=== PATIENT | female | born 1995 | race Caucasian/White ===

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

== ENCOUNTER 2017-10-09 18:39 | Emergency (ER) | payer BC ==
[2017-10-09 18:52] VITALS: BP 125/75
--- NOTE | 2017-10-09 19:49 | ED ---
GI/ HPI - HPI Summary HPI Summary: 22 yo WF c/o bloody urine x 3 hrs, denies f/c/dysuria, suprapubic pressure/ flank pain - History of Current Complaint Chief Complaint: UCGU Time Seen by Provider: 10/09/17 18:47 Stated Complaint: BLOOD IN URINE Hx Obtained From: Patient Hx Last Menstrual Period: mirena Timing: Constant, Lasting Hours Severity: Moderate Current Severity: Moderate Pain Intensity: 0 Associated Signs and Symptoms: Positive: Negative - Allergy/Home Medications Allergies/Adverse Reactions: Allergies Allergy/AdvReac Type Severity Reaction Status Date / Time No Known Allergies Allergy Verified 10/09/17 18:52 PMH/Surg Hx/FS Hx/Imm Hx Previously Healthy: Yes Endocrine/Hematology History: Denies: Hx Diabetes, Hx Thyroid Disease Cardiovascular History: Denies: Hx Hypertension Respiratory History: Denies: Hx Asthma, Hx Chronic Obstructive Pulmonary Disease (COPD) GI History: Denies: Hx Ulcer Infectious Disease History: No Infectious Disease History: Denies: Hx Hepatitis, Hx Human Immunodeficiency Virus (HIV), Traveled Outside the in Last 30 Days - Family History Known Family History: Positive: Diabetes - Social History Alcohol Use: None Substance Use Type: Reports: None Smoking Status (MU): Never Smoked Tobacco Review of Systems Constitutional: Negative Eyes: Negative ENT: Negative Cardiovascular: Negative Respiratory: Negative Gastrointestinal: Negative Positive: see HPI, hematuria Musculoskeletal: Negative Skin: Negative Neurological: Negative Psychological: Normal All Other Systems Reviewed And Are Negative: Yes Physical Exam Triage Information Reviewed: Yes Vital Signs On Initial Exam: Initial Vitals Temp Pulse Resp BP Pulse Ox 37.3 C 88 19 125/75 98 10/09/17 18:47 10/09/17 18:47 10/09/17 18:47 10/09/17 18:47 10/09/17 18:47 Vital Signs Reviewed: Yes Appearance: Positive: Well-Appearing Skin: Positive: Warm Head/Face: Positive: Normal Head/Face Inspection Eyes: Positive: Normal ENT: Positive: Normal ENT inspection Neck: Positive: Supple Cardiovascular: Positive: Normal, S1, S2 Abdomen Description: Positive: Nontender, Soft. Negative: CVA Tenderness (R), CVA Tenderness (L), Distended, Guarding Musculoskeletal: Positive: Normal Neurological: Positive: Normal Diagnostics - Vital Signs Vital Signs Temp Pulse Resp BP Pulse Ox 10/09/17 18:47 37.3 C 88 19 125/75 98 - Laboratory Lab Results: Lab Results 10/09/17 10/09/17 Range/Units 19:00 19:17 POC Urine Color Red A POC Urine Clarity Clear POC Urine pH 6.0 (5-9) POC Ur Specif [place] <= 1.005 L (1.010-1.030) POC Urine Protein 2+ A (Negative) POC Ur Glucose (UA) Negative (Negative) POC Urine Ketones Negative (Negative) POC Urine Blood 3+ A (Negative) POC Urine Nitrite Negative (Negative) POC Urine Bilirubin Negative (Negative) POC Urine Urobilinogen 0.2 (Negative) POC U Leukocyte Esteras Trace A (Negative) POC Ur Test Negative (Negative) Lab Statement: Any lab studies that have been ordered have been reviewed, and results considered in the medical decision making process. GIGU Course/Dx - Course Assessment/Plan: painless hematuria with LE in UA, recommended to WAIT to take the macrobid and see if the hematuria resolves on its own, if it does not resolve in 2-3 days, take the abx for occult UTI - Diagnoses Provider Diagnoses: Hematuria, unspecified Discharge - Sign-Out/Discharge Documenting (check all that apply): Discharge/Admit/Transfer - Discharge Plan Condition: Stable Disposition: HOME Prescriptions: Nitrofurantoin Monohyd/M-Cryst [Macrobid 100 mg Capsule] 100 mg PO BID 5 Days # 10 cap Patient Education Materials: Hematuria (ED) Referrals: No Primary Care Phys,NOPCP [Primary Care Provider] - - Billing Disposition and Condition Condition: STABLE Disposition: HOME
== END 2017-10-09 20:01 | disposition home or self-care (01) ==
LOC: UCEAST 18:39
DX: R31.9 Hematuria, unspecified (principal); Z32.02 Encounter for pregnancy test, result negative
CPT/HCPCS: 81003; 84702; 87086; 99211; G0463

== ENCOUNTER 2018-04-18 16:00 | Emergency (ER) | payer BC ==
[2018-04-18 17:06] VITALS: BP 109/71
--- NOTE | 2018-04-18 17:21 | UC ---
Complaint Female HPI - HPI Summary HPI Summary: 22 year old female presents with 3 day history of suprapubic pain, dysuria, frequency, and urgency. Today developed some bilateral lower back pain. Denies fever, chills, flank pain, nausea, vomiting, hematuria, or vaginal discharge. - History Of Current Complaint Chief Complaint: UCGU Stated Complaint: URINARY Time Seen by Provider: 04/18/18 17:10 Hx Obtained From: Patient Hx Last Menstrual Period: IUD Onset/Duration: Gradual Onset, Lasting Days - 3 Severity Currently: Moderate Pain Intensity: 7 Character: Burning Aggravating Factor(s): Urination Alleviating Factor(s): Nothing Associated Signs And Symptoms: Positive: Back Pain. Negative: Fever, Vaginal Bleeding/Discharge, Nausea, Vomiting(# Of Episodes =), Genital Swelling, Genital Blisters - Allergies/Home Medications Allergies/Adverse Reactions: Allergies Allergy/AdvReac Type Severity Reaction Status Date / Time No Known Allergies Allergy Verified 10/09/17 18:52 Home Medications: Home Medications Iud 04/18/18 [History] Pumpkin Seed Extract/Soy Germ [Azo Bladder Control Capsule] 1 each PO DAILY 04/25 [History Confirmed 04/18/18] PMH/Surg Hx/FS Hx/Imm Hx Previously Healthy: Yes - Denies significant PMH - Surgical History Surgical History: None - Family History Known Family History: Positive: Diabetes - Social History Occupation: Employed Part-time Lives: With Family Alcohol Use: None Substance Use Type: None Smoking Status (MU): Never Smoked Tobacco Review of Systems All Other Systems Reviewed And Are Negative: Yes Constitutional: Positive: Negative Gastrointestinal: Positive: Negative Genitourinary: Positive: Dysuria, Frequency, Urgency Is Patient Immunocompromised?: No Physical Exam Triage Information Reviewed: Yes Appearance: Well-Appearing, No Pain Distress, Well-Nourished Vital Signs: Initial Vital Signs Temp 98.1 F 04/18/18 17:01 Pulse 76 04/18/18 17:01 Resp 17 04/18/18 17:01 BP 109/71 04/18/18 17:01 Pulse Ox 100 04/18/18 17:01 Respiratory: Positive: Lungs clear, Normal breath sounds, No respiratory distress Cardiovascular: Positive: RRR, No Murmur Abdomen Description: Positive: No Organomegaly, Soft, Other: - Mild suprapubic tenderness. Negative: CVA Tenderness (R), CVA Tenderness (L), Distended, Guarding Neurological: Positive: Alert Skin Exam: Normal Diagnostics - Laboratory Diagnostic Studies Completed/Ordered: Urine culture pending Complaint Female Dx - Course Course Of Treatment: 22 year old female with 3 day history of dysuria, frequncy , urgency, and suprapubic discomfort. Afebrile. Unable to perform POC UA as patient had taken Azo. Urine culture sent. Based on symptoms with treat empirically for UTI with 3 day course of Bactrim DS pending culture results. She is to follow up with PCP if symptoms persist. Warning symptoms reviewed. Verbalizes understanding and agrees with POC. - Differential Dx/Diagnosis Provider Diagnoses: UTI Discharge - Sign-Out/Discharge Documenting (check all that apply): Patient Departure All imaging exams completed and their final reports reviewed: No Studies - Discharge Plan Condition: Stable Disposition: HOME Prescriptions: Sulfamethox/Trimethoprim DS* [Bactrim DS 800/160 TAB*] 1 tab PO BID #5 tab Patient Education Materials: Urinary Tract Infection in Women (ED) Referrals: No Primary Care Phys,NOPCP [Primary Care Provider] - Additional Instructions: We were unable to test your urine for urinary tract infection in the clinic because you took Azo which can effect the results of the test. We will send the urine for culture to see if any bacteria grow out and make sure that the antibiotic you were prescribed is appropriate. It take 48-72 hours for these results. Take Bactrim DS 1 tab twice a day for 3 days. We gave you the first dose of the antibiotic in the clinic. You may continue to take the Azo as directed for next 2 days. You should not need this after 2 days as your symptoms should be improving on the antibiotics by this time. To help prevent urinary tract infections: Drink plenty of fluids. Be sure to wipe from front to back. Urinate immediately after any sexual intercourse. Follow up with your primary care provider in 5 days if symptoms persist. Seek immediate medical attention in the emergency room if you have fever greater than 100.5 F, have severe abdominal pain, persistent vomiting, or any worsening of symptoms. - Billing Disposition and Condition Condition: STABLE Disposition: Home
[2018-04-18] MEDS ORDERED: Sulfamethox/Trimethoprim DS 800/160* TAB PO ONE (17:24)
--- NOTE | 2018-04-21 07:01 | UC ---
- Progress Note Progress Note: urine + proteus on bactrim no change pending final j 04/21/18 Discharge - Sign-Out/Discharge Documenting (check all that apply): Post-Discharge Follow Up All imaging exams completed and their final reports reviewed: No Studies - Discharge Plan Condition: Stable Disposition: HOME Prescriptions: Sulfamethox/Trimethoprim DS* [Bactrim DS 800/160 TAB*] 1 tab PO BID #5 tab Patient Education Materials: Urinary Tract Infection in Women (ED) Referrals: No Primary Care Phys,NOPCP [Primary Care Provider] - Additional Instructions: We were unable to test your urine for urinary tract infection in the clinic because you took Azo which can effect the results of the test. We will send the urine for culture to see if any bacteria grow out and make sure that the antibiotic you were prescribed is appropriate. It take 48-72 hours for these results. Take Bactrim DS 1 tab twice a day for 3 days. We gave you the first dose of the antibiotic in the clinic. You may continue to take the Azo as directed for next 2 days. You should not need this after 2 days as your symptoms should be improving on the antibiotics by this time. To help prevent urinary tract infections: Drink plenty of fluids. Be sure to wipe from front to back. Urinate immediately after any sexual intercourse. Follow up with your primary care provider in 5 days if symptoms persist. Seek immediate medical attention in the emergency room if you have fever greater than 100.5 F, have severe abdominal pain, persistent vomiting, or any worsening of symptoms. - Billing Disposition and Condition Condition: STABLE Disposition: Home
== END 2018-04-18 17:33 | disposition home or self-care (01) ==
LOC: UCCORT 16:00
DX: N39.0 Urinary tract infection, site not specified (principal); B96.4 Proteus (mirabilis) (morganii) as the cause of diseases classified elsewhere; Z16.29 Resistance to other single specified antibiotic
CPT/HCPCS: 87077; 87086; 87186; 99212; A9270-GY; G0463

== ENCOUNTER 2022-06-04 17:54 | Inpatient (IN) ==
[2022-06-04] MEDS ORDERED: Dinoprostone 10 MG VAG.SUPP VAGINAL ONE (18:09)
[2022-06-04] MEDS ORDERED: Buffered Lidocaine 1% SYRIN 1 ml ONE (18:49)
[2022-06-04 19:18] LABS: ABS Basophils 0.1 10^3/ul (0-0.2); ABS Eosinophils 0.1 10^3/ul (0-0.6); ABS Lymphocytes 2.2 10^3/ul (1.0-4.8); ABS Monocytes 0.9 10^3/ul (0-0.8); ABS Neutrophils 10.6 10^3/ul (1.5-7.7); Eosinophil % 0.7 %; Hematocrit 33 % (35-47); Hemoglobin 11.2 g/dL (12.0-16.0); Lymphocyte % 15.6 %; Mean Corpuscular HGB Conc 34 g/dL (31-36); Mean Corpuscular Hemoglobin 26 pg (27-31); Mean Corpuscular Volume 78 fL (80-97); Mean Platelet Volume 9.3 fL (7.4-10.4); Platelet Count 254 10^3/uL (150-450); Red Blood Count 4.27 10^6 /uL (3.70-4.87); Red Cell Distribution Width 13 % (10-15); White Blood Count 13.8 10^3/uL (3.5-10.8)
[2022-06-04 19:38] LABS: Urine Benzodiazepine Screen None Detected (None Detect); Urine Cannabinoids Screen None Detected (None Detect); Urine Opiates Screen None Detected (None Detect)
[2022-06-04 19:58] LABS: Albumin 3.2 g/dL (3.2-5.2); Calcium 8.2 mg/dL (8.6-10.3); Globulin 3.2 g/dL (2-4); Total Bilirubin 0.5 mg/dL (0.2-1.0); Total Protein 6.4 g/dL (6.4-8.9); Uric Acid 5.1 mg/dL (2.3-6.6)
[2022-06-04] MEDS: OSELTAMIVIR 75 MG PO SCH (22:31)
[2022-06-05] MEDS ORDERED: Morphine 10 MG/ML VIAL (1 ml) IM ONE (00:33)
[2022-06-05] MEDS ORDERED: Promethazine INJ(RESTRICTED) 25 MG/ML 1 ml VIAL IM ONE (00:34)
[2022-06-05] MEDS: OSELTAMIVIR 75 MG PO SCH (08:03)
[2022-06-05] MEDS ORDERED: Buffered Lidocaine 1% SYRIN 1 ml ONE (09:31)
[2022-06-05] MEDS ORDERED: Lidocaine/Epinephrin 1.5%/200 5 ML AMP INJ ONE (10:47)
[2022-06-05] MEDS ORDERED: Oxytocin in LR 20,000 MILLI.UNIT/1,000 ML BAG IV SCH ×2 (11:15→21:30)
[2022-06-05] MEDS ORDERED: OBEPIDURAL (200 ML) 200 ML EPIDURAL ONE (11:33)
[2022-06-05] MEDS ORDERED: Lidocaine 2% JELLY 6 ML Topical TOPICAL ONE (12:19)
[2022-06-05 13:27] LABS: Urine Appearance Clear; Urine Bilirubin Negative (Negative); Urine Blood Negative (Negative); Urine Color Yellow; Urine Glucose Negative (Negative); Urine Ketones 1+ (Negative); Urine Nitrite Negative (Negative); Urine Protein Negative (Negative); Urine Specific Gravity 1.013 (1.002-1.030); Urine Urobilinogen Negative (Negative)
[2022-06-05] MEDS ORDERED: Witch Hazel PAD JAR TOPICAL PRN (21:20)
[2022-06-05] MEDS ORDERED: Glycerin ADULT 2.4 gm SUPP PR PRN (21:20)
[2022-06-05] MEDS ORDERED: Dibucaine 1% OINT 28.35 GM TUBE PR PRN (21:20)
[2022-06-05] MEDS ORDERED: Lactated Ringers 1000 ml BAG 1,000 ML IV SCH (22:00)
[2022-06-06] MEDS: OSELTAMIVIR 75 MG PO SCH ×3 (00:33→21:13)
[2022-06-06] MEDS ORDERED: Lidocaine 1% MPF 5 ML VIAL ONE (00:36)
[2022-06-06] MEDS ORDERED: Lidocaine 1% VIAL 10 MG/ML VIAL 30 ML ONE (00:36)
[2022-06-06 07:32] LABS: ABS Basophils 0.1 10^3/ul (0-0.2); ABS Lymphocytes 3.2 10^3/ul (1.0-4.8); ABS Monocytes 1.5 10^3/ul (0-0.8); ABS Neutrophils 13.9 10^3/ul (1.5-7.7); Eosinophil % 0.2 %; Hematocrit 29 % (35-47); Hemoglobin 9.5 g/dL (12.0-16.0); Lymphocyte % 16.8 %; Mean Corpuscular HGB Conc 33 g/dL (31-36); Mean Corpuscular Hemoglobin 26 pg (27-31); Mean Corpuscular Volume 80 fL (80-97); Mean Platelet Volume 9.2 fL (7.4-10.4); Platelet Count 283 10^3/uL (150-450); Red Blood Count 3.64 10^6 /uL (3.70-4.87); Red Cell Distribution Width 13 % (10-15); White Blood Count 18.8 10^3/uL (3.5-10.8)
[2022-06-06 19:21] VITALS: BP 123/66
[2022-06-07] MEDS: OSELTAMIVIR 75 MG PO SCH (09:39)
== END 2022-06-07 13:20 | disposition home or self-care (01) | DRG 542 ==
LOC: MCHOBOUT 17:54 → MCHOB 18:37
PROVIDERS: ADMIT Midwife; ATTEND Midwife